=== PATIENT | male | born 1960 | race Caucasian/White ===

== ENCOUNTER → 2025-08-30 18:30 | Outpatient (REF) | payer OTHER, SELFPAY | LOC: MRI 18:30 | PROVIDERS: ATTENDING PHYSICIAN Nurse Practitioner Acute Care; FAMILY PHYSICIAN Family Medicine | DX: M48.062 Spinal stenosis, lumbar region with neurogenic claudication (principal); Z98.890 Other specified postprocedural states; M25.551 Pain in right hip | CPT/HCPCS: 72158; A9575 ==